=== PATIENT | female | born 1990 | race Two or more races ===

== ENCOUNTER 2019-10-25 14:21 | Inpatient (IN) | payer OTHER ==
[~2019-10-25] VITALS: Ht 165.1 cm; Wt 80.3 kg
[2019-11-07] MEDS ORDERED: PRENATAL CAPLE1 EAC1 PO (07:55)
== END 2019-11-09 18:17 | disposition home or self-care (01) | DRG 807 ==
LOC: LDR 11-07 06:44 → SURG-SUITE 11-07 16:45 → LDR 11-10 10:00
PROVIDERS: ADMIT Obstetrics & Gynecology; ATTEND Obstetrics & Gynecology
PROC: 10E0XZZ Delivery of Products of Conception, External Approach (ICD-10-PCS; principal; 2019-11-07)
PROC: 10907ZC Drainage of Amniotic Fluid, Therapeutic from Products of Conception, Via Natural or Artificial Opening (ICD-10-PCS; 2019-11-07)
PROC: 3E0P7VZ Introduction of Hormone into Female Reproductive, Via Natural or Artificial Opening (ICD-10-PCS; 2019-11-07)
PROC: 3E033VJ Introduction of Other Hormone into Peripheral Vein, Percutaneous Approach (ICD-10-PCS; 2019-11-07)
PROC: 4A1HXCZ Monitoring of Products of Conception, Cardiac Rate, External Approach (ICD-10-PCS; 2019-11-07)
DX: O99.824 Streptococcus B carrier state complicating childbirth (principal); Z37.0 Single live birth; Z3A.39 39 weeks gestation of pregnancy

== ENCOUNTER 2020-10-06 21:00 | Emergency (ER) | payer OTHER ==
[~2020-10-06] VITALS: Ht 165.1 cm; Wt 68.0 kg
[~2020-10-06 21:00] MED LIST: PRENATAL CAPLE1 EAC1 PO
== END 2020-10-07 02:30 | disposition home or self-care (01) ==
LOC: ER 21:00
DX: S69.81XA Other specified injuries of right wrist, hand and finger(s), initial encounter (principal); W23.0XXA Caught, crushed, jammed, or pinched between moving objects, initial encounter; Y93.89 Activity, other specified; Y92.814 Boat as the place of occurrence of the external cause; Y99.8 Other external cause status